=== PATIENT | female | born 1980 | race Asian ===

== ENCOUNTER 2021-08-07 21:24 | Emergency (ER) | payer OTHER ==
[~2021-08-07] VITALS: Ht 154.9 cm; Wt 63.5 kg
--- NOTE | 2021-08-07 21:30 | NUR ---
Dr. Mina at bedside for MSE.
[2021-08-07] MEDS ORDERED: AMLO10TA59 PO (21:36)
[2021-08-07 21:52] LABS: *BILIRUBIN,URIN NEGATIVE (NEGATIVE); *BLOOD, URINE 3+ (NEGATIVE); *CLARITY,URINE SLIGHTLY CLOUDY (CLEAR); *COLOR,URINE YELLOW (YELLOW); *KETONES,URINE NEGATIVE (NEGATIVE); *UROBILINOGEN,URINE 0.2 E.U./dl (NORMAL); LEUKOCYTE ESTERASE ,URINE 1+ (NEGATIVE); NITRITE, URINE NEGATIVE (NEGATIVE); UGLUCOSE TRACE (NEGATIVE)
[2021-08-07 21:57] LABS: *URINE HCG, QUAL NEGATIVE (NEGATIVE)
[2021-08-07 22:13] LABS: BACTERIA,URINE NONE SEEN /HPF (NONE SEEN); RBC,URINE TNTC /HPF (0-3); SQUAMOUS EPITHELIAL CELL,UR FEW /HPF (NONE SEEN)
[2021-08-07] MEDS ORDERED: IV NORMAL SALINE 1000 ML BAG IV ONE (23:00)
[2021-08-07] MEDS ORDERED: ACETAMINOPHEN ES 500 MG TABLET PO ONE (23:00)
[2021-08-07] MEDS ORDERED: CEFTRIAXONE 1 G in IV DEXTROSE 5% 50 ML IV ONE (23:00)
[2021-08-07 23:08] LABS: HEMATOCRIT 33.4 % (31.2-41.9); MEAN CORPUSCULAR HEMOGLOBIN 24.5 uug (24.7-32.8); MEAN CORPUSCULAR VOLUME 74.7 fL (75.5-95.3); PLATELET COUNT (AUTO) 345 K/uL (179-408)
[2021-08-07] MEDS ORDERED: ACETAMINOPHEN ES 500 MG TABLET ONE (23:11)
[2021-08-07] MEDS ORDERED: CEFTRIAXONE /D5W 50ML IVPB **ER PYXIS IV ONE (23:11)
[2021-08-07 23:19] LABS: BILIRUBIN,DIRECT 0.1 mg/dL (0.0-0.2); BILIRUBIN,TOTAL 0.3 mg/dL (0.2-1.0); CREATININE 1.1 mg/dL (0.6-1.3); POTASSIUM 3.7 mmol/L (3.5-5.1); TOTAL PROTEIN, SERUM 8.2 g/dL (6.4-8.2)
[2021-08-08] MEDS ORDERED: CEPH500C2 PO (00:08)
--- NOTE | 2021-08-08 00:14 | NUR ---
Patient discharged to home in stable condition. Written and verbal after care instructions given. Patient verbalizes understanding of instructions. Stressed follow up or return to ER for worsening s/s. Patient out of ER with steady gait, no acute signs of distress, VSS, all belongings taken, IV site discontinued, provided with copies of lab results.
[2021-08-08 00:16] VITALS: BP 114/69
== END 2021-08-08 00:16 | disposition home or self-care (01) ==
LOC: ER 21:29
DX: N12 Tubulo-interstitial nephritis, not specified as acute or chronic (principal); Z20.822 Contact with and (suspected) exposure to COVID-19; R73.9 Hyperglycemia, unspecified; Z87.440 Personal history of urinary (tract) infections; E87.1 Hypo-osmolality and hyponatremia; D72.829 Elevated white blood cell count, unspecified
CPT/HCPCS: 36415; 80048; 80076; 81001; 83605; 84703; 85025; 87086; 87400; 87426; 96365; 99284; J0696; U0003; A4663; A9150; J7030